=== PATIENT | male | born 1970 | race Caucasian/White ===

== ENCOUNTER 2017-03-25 13:51 | Emergency (ER) | payer BC, OTHER ==
[2017-03-25] MEDS ORDERED: OXYCODONE-ACETAMINOPHEN 5-325 MG TABLET PO ONE (14:56)
--- NOTE | 2017-03-25 15:22 | ER Document Report ---
ED Hand/Wrist Injury - General Chief Complaint: Finger Injury Stated Complaint: LEFT HAND INJURY/PAIN Time Seen by Provider: 03/25/17 14:45 Mode of Arrival: Ambulatory Information source: Patient Notes: 46-year-old male presents to ED for complaint of left middle finger injury. He states he was working on a car when he dropped a cylinder head on his hand catching it between the cylinder head and the workbench. He smashed his finger between the 2 hard surfaces. He has active bleeding from his middle finger with a large laceration purple and painful. TRAVEL OUTSIDE OF THE [place] IN LAST 30 DAYS: No - HPI Injury to: Middle finger - left Onset: Just prior to arrival Where: Home Timing: Still present Quality of pain: Throbbing Severity: Moderate Pain Level: 3 Context: Crush - Related Data Allergies/Adverse Reactions: No Known Allergies Allergy (Verified 03/25/17 13:56) Past Medical History - General Information source: Patient - Social History Smoking Status: Current Every Day Smoker Cigarette use (# per day): Yes - ppd Chew tobacco use (# tins/day): No Smoking Education Provided: Yes - less than 1 min Frequency of alcohol use: Heavy - 2-3 beer Drug Abuse: Marijuana Lives with: Alone Family History: DM Patient has suicidal ideation: No Patient has homicidal ideation: No - Past Medical History Cardiac Medical History: Reports: None Pulmonary Medical History: Reports: None EENT Medical History: Reports: None Neurological Medical History: Reports: None Endocrine Medical History: Reports: None Renal/ Medical History: Reports: None Malignancy Medical History: Reports None GI Medical History: Reports: None Musculoskeltal Medical History: Reports Hx Musculoskeletal Trauma Skin Medical History: Reports None Psychiatric Medical History: Reports: None Traumatic Medical History: Reports: Hx Fractures - nose and finger Infectious Medical History: Reports: None Past Surgical History: Reports: Hx Nose Surgery - Immunizations Hx Diphtheria, Pertussis, Tetanus Vaccination: No Review of Systems - Review of Systems Constitutional: No symptoms reported EENT: No symptoms reported Cardiovascular: No symptoms reported Respiratory: No symptoms reported Gastrointestinal: No symptoms reported Genitourinary: No symptoms reported Male Genitourinary: No symptoms reported Musculoskeletal: Other - pain, swelling, and laceration to left 3rd finger Skin: No symptoms reported Hematologic/Lymphatic: No symptoms reported Neurological/Psychological: No symptoms reported Physical Exam - Vital signs Vitals: Temp Pulse BP Pulse Ox 98.1 F 68 141/75 H 99 03/25/17 13:55 03/25/17 13:55 03/25/17 13:55 03/25/17 13:55 Interpretation: Normal - General General appearance: Appears well, Alert - HEENT Head: Normocephalic, Atraumatic Eyes: Normal Pupils: PERRL - Respiratory Respiratory status: No respiratory distress Chest status: Nontender Breath sounds: Normal Chest palpation: Normal - Cardiovascular Rhythm: Regular Heart sounds: Normal auscultation Murmur: No - Abdominal Inspection: Normal Distension: No distension Bowel sounds: Normal Tenderness: Nontender Organomegaly: No organomegaly - Back Back: Normal, Nontender - Extremities General upper extremity: Normal ROM, Normal temperature General lower extremity: Normal inspection, Nontender, Normal color, Normal ROM , Normal temperature, Normal weight bearing. No: Brittney's sign Hand: Tender, Deformity, Ecchymosis, Laceration, Nail injury, No evidence of human bite, No evidence of FB, Swelling - Neurological Neuro grossly intact: Yes Cognition: Normal Orientation: AAOx4 Imtiaz Coma Scale Eye Opening: Spontaneous [place] Coma Scale Verbal: Oriented Imtiaz Coma Scale Motor: Obeys Commands Imtiaz Coma Scale Total: 15 Speech: Normal Motor strength normal: LUE, RUE, LLE, RLE Sensory: Normal - Psychological Associated symptoms: Normal affect, Normal mood - Skin Skin Temperature: Warm Skin Moisture: Dry Skin Color: Normal Course - Re-evaluation Re-evalutation: 03/25/17 19:35 Dr. Barros was called and consulted concerning the open tuft fracture to the left finger. The end of the finger was almost completely amputated there was a very small piece of skin attaching the into the finger to the finger. Dr. Barros came and saw the patient stated it just needed to cleaned well irrigated closed with nylon sutures to the palm side and absorbable sutures through the nail to attach the finger back. He states he was see the patient on Friday if the finger becomes necrotic or on Friday if the finger is not increasing in pain drainage or swelling. He recommended patient be placed on Keflex. Patient was instructed by ointment to elevate hand and to keep finger clean and dry until Friday and then change the dressing on a daily from Friday until Friday. End of the finger sutured back together 3 sutures placed through the end of the finger through the nail and patient was discharged home with prescription for Keflex and Grant dispense pack. Patient verbalized understanding of patient teaching and follow-up instructions. - Vital Signs Vital signs: Temp Pulse Resp BP Pulse Ox 98.5 F 70 16 163/91 H 99 03/25/17 17:06 03/25/17 17:06 03/25/17 17:06 03/25/17 17:06 03/25/17 17:06 - Diagnostic Test Radiology reviewed: Image reviewed, Reports reviewed Procedures - Laceration/Wound Repair Left middle finger Wound length (cm): 3 Wound's Depth, Shape: Other - End of the finger almost completely amputated Laceration pre-procedure: Sterile PPE donned, Sterile drapes applied, Shur- Clens applied Anesthetic type: 1% Lidocaine Volume Anesthetic (mLs): 8 Wound explored: Contaminated Irrigated w/ Saline (mLs): 500 Wound Repaired With: Sutures Suture Size/Type: 4:0, Ethilon - And gut Number of Sutures: 7 - +3 dissolvable sutures Layer Closure?: No Post-procedure wound care: Sterile dressing applied, Splint applied Post-procedure NV exam normal: Yes Complications: Yes - Angle was almost completely amputated finger and the finger reattached Discharge - Discharge Clinical Impression: left open tubt fracture 3rd finger Condition: Stable Disposition: HOME, SELF-CARE Additional Instructions: Tuft Fracture of the Finger The tip of your finger is broken (beneath the finger nail). While painful , this type of fracture is not serious. You can expect the bone to heal within three to four weeks. Elevating and ice packing the finger will help greatly in reducing pain and swelling. You will probably need a protective splint, initially. When you can push firmly on the tip of your finger without any pain, you no longer need to use the splint. If the fingernail becomes black and painful, bleeding has occurred under the nail. This may need to be drained. Sometimes the nail must be removed. Occasionally, the tissue under the nail must be sewn back together. Call the doctor or return for examination if pain becomes severe, or if numbness or severe discoloration occurs. Due to the extent of your fracture and laceration is Dr. Barros discussed with you the end of the finger may not survive. Be sure to call him Friday morning to follow-up Friday morning if this occurs. When you change her dressing on Friday if the finger is not dark with drainage and follow-up with orthopedics on Friday as he discussed. Do not change the dressing before Friday. Hand Laceration A laceration on the hand can present special problems. It may be difficult to keep the wound dry. Motion of the fingers can disturb the healing edges. Your work may involve exposure to damaging chemicals or water. Keep the wound clean and dry. If you can't keep the cut dry, undisturbed, and free of chemical exposure, please discuss this with the doctor. If any water or chemical gets onto the dressing, remove it, blot the wound dry, then apply a fresh bandage. Dressings should be changed every day. If you feel the stitches pulling as you move the hand, a splint or other form of protection is needed. If any signs of infection occur (swelling, redness, increasing tenderness, red streaks, tender lumps in the armpit, or fever), see the doctor immediately. Cephalexin The antibiotic you've been prescribed is a member of the cephalosporin class. This type of antibiotic covers a wide variety of infections, including those of the skin, lungs, and urinary tract. It's useful for staph infections. This antibiotic is slightly similar to the penicillin family. In rare cases , a person who is allergic to penicillin will also be allergic to this medication. If you have had a severe allergic reaction to penicillin, and have not taken this antibiotic since that time, notify your doctor. Antibiotics which cover many germs ("broad spectrum" antibiotics) are more likely to cause diarrhea or "yeast" infections. Women prone to vaginal yeast problems may suffer an attack after taking this antibiotic. In infants, oral thrush (white spots "stuck" on the cheek) or yeast diaper rash may result. See your doctor if these problems occur. Call at once if you develop itching, hives , shortness of breath, or lightheadedness. SOAP CLEANSING: Gently wash the wound daily using a mild soap (like Ivory, Phisoderm, Neutrogena). Use warm water, rubbing gently until all debris, ooze, and crusting have been washed from the wound. Allow to dry briefly (about 10 minutes) after cleaning. Repeat this cleansing at least three times a day for the first two days and then once or twice a day. ANTIBIOTIC OINTMENT PROTECTION: Your wounds are such that dressing them is not practical or optional. After cleansing, you should apply a thin coating of antibiotic ointment ( Bacitracin, not Neosporin) to the wounds at least three times daily. This lessens infection risk, and may decrease the amount of scarring. Use a q-tip or dull butter knife, not your finger, to apply this ointment. Any debris or ooze which builds up in the ointment should be gently rubbed off with a sterile gauze pad. Harder crusting may need to be gently scrubbed off with a clean wash cloth with soap and warm water, perhaps applying a warm, wet wash cloth to the wound for ten minutes first. Development of redness, severe itching, or blistering may mean allergy to the ointment. See the doctor. Splint Precautions A splint has been placed. This will protect the area while healing begins. Your problem does NOT normally require a cast. It MUST, however, be held still! Keep the splint on ALL THE TIME until instructed to remove it by the doctor. As you begin to use the area, be careful. You shouldn't do anything which causes discomfort -- you may disturb the injury even with the splint in place. After the initial period of rest and elevation, if splint does not prevent pain when you move, come back. You may require placement of a different splint , or a cast. If there is unexpected severe pain, or numbness, discoloration, or swelling beyond the splint, you should return at once. If you feel that the splint has broken or become loose, come back. TETANUS IMMUNIZATION GIVEN: You have been given an immunization against tetanus. Please record this in your records. In general, a booster is needed only once every 10 years. The tetanus shot protects against tetanus or "lockjaw," which is a complication of certain wound infections (the tetanus shot cannot protect against the actual infection). The immunization site may become warm and red due to local reaction. If this occurs, apply warm compresses and take aspirin or ibuprofen to reduce inflammation and discomfort. Return for evaluation if the reaction becomes severe. ORAL NARCOTIC MEDICATION: You have been given a icomasoft dispense pack for pain control. This medication is a narcotic. It's best taken with food, as nausea can result if taken on an empty stomach. Don't operate machinery or drive within six hours of taking this medication. Do not combine this medicine with alcohol, or with any medication which can cause sedation (such as cold tablets or sleeping pills) unless you get permission from the physician. Narcotics tend to cause constipation. If possible, drink plenty of fluids and eat a diet high in fiber and fruits. FOLLOW-UP CARE: Please return in __friday___ days for an infection check and dressing change. Your sutures should be removed in __9___ days. To facilitate a timely removal of your sutures, you may return to the Emergency Department at [facility]. You do not need to call for an appointment, but the best time to come in for suture removal is early in the morning. If you have been referred to another physician for follow-up care, call that physicians office for an appointment as you were instructed. If you experience a significant change in your laceration, or if you are concerned there may be an infection (swelling, redness, drainage, increasing tenderness, red streaks, tender lumps in the armpit or groin above the laceration, or fever) , return to the Emergency Department immediately re-evaluation. Prescriptions: Cephalexin Monohydrate [Keflex 500 mg Capsule] 500 mg PO Q6H 5 Days capsule Forms: Smoking Cessation Education, Elevated Blood Pressure Referrals: MARY ANN BARROS DO [ACTIVE STAFF] - 03/31/17
--- NOTE | 2017-03-25 15:30 | RADIOLOGY REPORT (SQ) ---
EXAM DESCRIPTION: FINGER LEFT COMPLETED DATE/TIME: 03/25/2017 3:17 pm REASON FOR STUDY: middle finger injury COMPARISON: None. NUMBER OF VIEWS: Three views. TECHNIQUE: AP, lateral, and oblique images acquired of the left third finger. LIMITATIONS: None. FINDINGS: MINERALIZATION: Normal. BONES: There is a fracture of the terminal tuft of the 3rd digit. SOFT TISSUES: There is a soft tissue injury to the distal 3rd digit. OTHER: No other significant finding. IMPRESSION: Fracture of the terminal tuft of the 3rd digit. COMMENT: SITE OF TRAUMA/COMPLAINT MARKED/STAMP COMPLETED: Yes TECHNICAL DOCUMENTATION: JOB ID: [id number] [employer]- All Rights Reserved
[2017-03-25] MEDS ORDERED: CEPHALEXIN 500 MG CAPSULE PO ONE (15:48)
[2017-03-25] MEDS ORDERED: DIPH/PERTUSS(ACELL)/TETANUS VAC/PF 0.5 ML SYR (>=10YO) IM ONE (15:48)
[2017-03-25] MEDS ORDERED: LIDOCAINE 1% INJ-PF (10 MG/ML) 30 ML SDV INJ ONE (15:49)
--- NOTE | 2017-03-25 15:58 | PDOC CONSULTATION ---
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 At work today he inadvertently crushed the left middle finger between 2 objects and attempted to pull away during the injury and sustained a laceration along his fingertip. Patient had notable pain and bleeding at the time of injury and was brought to the emergency room. Upon arrival at the emergency room patient was to receive tetanus and antibiotics. Radiographs demonstrate fracture of his distal phalanx. Currently patient states pain is 3/10 does have some numbness and tingling in the finger. States pain is worse with any pressure. Notes the bleeding has notably improved since the time of injury. Past Medical History Cardiac Medical History: Reports: None Pulmonary Medical History: Reports: None, Chronic Obstructive Pulmonary Disease (COPD) EENT Medical History: Reports: None Neurological Medical History: Reports: None Endocrine Medical History: Reports: None Renal/ Medical History: Reports: None Malignancy Medical History: Reports: None GI Medical History: Reports: None Skin Medical History: Reports: None Psychiatric Medical History: Reports: None Infectious Medical History: Reports: None Social History Lives with: Alone Smoking Status: Current Every Day Smoker Family History Family History: DM Parental Family History Reviewed: No Children Family History Reviewed: No Sibling(s) Family History Reviewed.: No Medication/Allergy Home Medications: Albuterol Sulfate [Ventolin Hfa] 2 puff IH Q4HP PRN #17 gm 12/23/12 Prednisone [Deltasone 20 mg Tablet] 40 mg PO DAILY #10 tablet 12/23/12 Allergies/Adverse Reactions: No Known Allergies Allergy (Verified 03/25/17 13:56) Review of Systems Constitutional: ABSENT: chills, fever(s), headache(s), weight gain, weight loss Eyes: ABSENT: visual disturbances Ears: ABSENT: hearing changes Cardiovascular: ABSENT: chest pain, dyspnea on exertion, edema, orthropnea, palpitations Respiratory: ABSENT: cough, hemoptysis Gastrointestinal: ABSENT: abdominal pain, constipation, diarrhea, hematemesis, hematochezia, nausea, vomiting Genitourinary: ABSENT: dysuria, hematuria Musculoskeletal: PRESENT: as per HPI Integumentary: ABSENT: rash, wounds Neurological: ABSENT: abnormal gait, abnormal speech, confusion, dizziness, focal weakness, syncope Psychiatric: ABSENT: anxiety, depression, homidical ideation, suicidal ideation Endocrine: ABSENT: cold intolerance, heat intolerance, menstrual abnormalities, polydipsia, polyuria Hematologic/Lymphatic: ABSENT: easy bleeding, easy bruising, lymphadenopathy Physical Exam Vital Signs: Temp Pulse Resp BP Pulse Ox 98.1 F 68 141/75 H 99 03/25/17 13:55 03/25/17 13:55 03/25/17 13:55 03/25/17 13:55 Intake & Output 03/24/17 03/25/17 03/26/17 06:59 06:59 06:59 Weight 58.967 kg General appearance: PRESENT: no acute distress, cooperative Head exam: PRESENT: atraumatic, normocephalic Eye exam: PRESENT: conjunctiva pink, EOMI, PERRLA. ABSENT: scleral icterus Ear exam: PRESENT: normal external ear exam Mouth exam: PRESENT: moist, tongue midline Neck exam: ABSENT: carotid bruit, JVD, lymphadenopathy, thyromegaly Respiratory exam: PRESENT: unlabored Cardiovascular exam: PRESENT: RRR. ABSENT: diastolic murmur, rubs, systolic murmur Vascular exam: PRESENT: normal capillary refill - Non-affected digits. GI/Abdominal exam: PRESENT: soft. ABSENT: distended, guarding, mass, organolmegaly, rebound, tenderness Rectal exam: PRESENT: deferred Extremities exam: PRESENT: other - Left middle finger: Oblique laceration that begins at the distal flexion crease just radial from midline and extends in a distal dorsal direction exiting the ulnar aspect of the middle finger. The germinal matrix remains intact there is some involvement of the underlying sterile matrix. Patient has good skin turgor but decreased capillary refill. Patient lacks sharp versus light touch along the remaining section of the digits. Intact flexion of the digit but limited secondary to pain. Neurological exam: PRESENT: alert, awake, oriented to person, oriented to place , oriented to time, oriented to situation, CN II-XII grossly intact. ABSENT: motor sensory deficit Psychiatric exam: PRESENT: appropriate affect, normal mood. ABSENT: homicidal ideation, suicidal ideation Skin exam: PRESENT: dry, intact, warm. ABSENT: cyanosis, rash Results Impressions: Finger X-Ray 03/25/17 14:54 IMPRESSION: Fracture of the terminal tuft of the 3rd digit. Status: Image reviewed by me - I have reviewed patient's radiographs which demonstrate comminuted tuft fracture of the left middle finger distal phalanx with soft tissue disruption Assessment & Plan - Diagnosis (1) Open fracture of tuft of distal phalanx of finger Is this a current diagnosis for this admission?: Yes Plan: Patient sustained a open tuft fracture laceration of his left middle finger distal phalanx. There is approximately 1 cm of soft tissue bridge that is intact along the radial aspect of the digit currently there is good skin turgor thus I have recommended irrigation with debridement of the distal phalanx and ultimately closure of the wound and fixation of the remaining skin to the nail plate to provide further support. I have discussed these details with the emergency room provider who is comfortable with proceeding with closure of the wound. I also discussed with the patient there is the possibility that this could become dysvascular which would require alternative treatment including revision amputation versus flap coverage. Patient understands these risks and would like to proceed with primary closure and if this is not successful proceed with further treatment options in the future. I have discussed the importance of tobacco cessation and its negative effects on wound healing and soft tissue healing. Patient will contact the office and follow up with me on 03/31/17 for wound check however he should return to my office prior to the scheduled appointment if he notices increasing pain, redness swelling drainage or dysvascularity which was explained to him.
[2017-03-25 17:09] VITALS: BP 163/91
== END 2017-03-25 17:23 | disposition home or self-care (01) ==
LOC: ER 13:51
DX: S62.633B Displaced fracture of distal phalanx of left middle finger, initial encounter for open fracture (principal); W20.8XXA Other cause of strike by thrown, projected or falling object, initial encounter; Y93.89 Activity, other specified; Y92.009 Unspecified place in unspecified non-institutional (private) residence as the place of occurrence of the external cause; F17.210 Nicotine dependence, cigarettes, uncomplicated; Z71.6 Tobacco abuse counseling
CPT/HCPCS: 99283; 90471; 73140; 90715; 12002; J3490